=== PATIENT | female | born 1995 ===

== ENCOUNTER 2025-02-08 19:30 | Emergency (ER) | payer SELFPAY ==
[2025-02-08 23:18] VITALS: BP 119/80; PULSE 87
== END 2025-02-08 23:45 | disposition home or self-care (01) ==
LOC: FB.ED 19:30
DX: S00.03XA Contusion of scalp, initial encounter (principal); Y04.2XXA Assault by strike against or bumped into by another person, initial encounter
CPT/HCPCS: 70450; 71111; 72100; 99284; A9270